=== PATIENT | female | born 1960 | race Caucasian/White ===

== ENCOUNTER 2017-07-25 10:07 | Inpatient (IN) | payer BC, MEDICARE ==
[~2017-07-25] VITALS: Ht 157.5 cm; Wt 61.9 kg
[~2017-07-25 10:07] MED LIST: CO-E50CA PO; CYPR4TAB PO; D31000TA PO; LOVA10TA PO; OMEP20TA PO; SERT50 PO; SUCR1TAB PO; TAB-TAB PO; TRAM50TA PO; VALT1TAB26 PO
[2017-07-25] MEDS ORDERED: METOPROLOL TARTRATE 25 MG TAB PO PRN (10:45)
[2017-07-25] MEDS ORDERED: ceFAZolin 2 GM/DEX PREMIX 50 ML IV SCH (10:45)
[2017-07-25] MEDS ORDERED: POVIDONE IODINE 5% (ANTISEPSIS KIT) 4 APPLICATIONS EACH NARE PRN (10:45)
[2017-07-25] MEDS ORDERED: SODIUM CHLORID 0.9% 500 ML IV PRN (10:45)
[2017-07-25] MEDS ORDERED: CHLORHEXIDINE GLUCONATE 2 % 1 PACK (2 CLOTHS) TOPICAL PRN (10:45)
[2017-07-25] MEDS ORDERED: LACTATED RINGER'S 1000 ML IV PRN (10:45)
[2017-07-25] MEDS ORDERED: LORA1TAB12 PO (11:21)
[2017-07-25] MEDS ORDERED: LIVA4TAB PO (11:21)
[2017-07-25] MEDS ORDERED: ESTR0.62 VAGINAL (11:21)
[2017-07-25] MEDS ORDERED: HYDR-3516 PO (11:21)
[2017-07-25] MEDS ORDERED: FLUT50SP EACH NARE (11:21)
[2017-07-25] MEDS ORDERED: DEXA4TAB PO (11:21)
[2017-07-25] MEDS ORDERED: [UNRECOGNIZED DRUG - CODE] IV (11:21)
[2017-07-25] MEDS ORDERED: ESCI10TA PO (11:21)
[2017-07-25 11:29] LABS: AUTOMATED NEUTROPHIL # 3.8 TH/MM3 (1.8-7.7); HEMATOCRIT 35.6 % (35.0-46.0); HEMOGLOBIN 12.1 GM/DL (11.6-15.3); LYMPH % 13.5 % (9.0-44.0); LYMPHOCYTE # 0.7 TH/MM3 (1.0-4.8); MEAN CELL VOLUME 92.2 FL (80.0-100.0); MEAN CORPUSCULAR HEMOGLOBIN 31.2 PG (27.0-34.0); MEAN CORPUSCULAR HGB CONC 33.9 % (32.0-36.0); MEAN PLATELET VOLUME 7.2 FL (7.0-11.0); MONO % 14.3 % (0.0-8.0); MONOCYTE # 0.7 TH/MM3 (0-0.9); NEUT % 72.2 % (16.0-70.0); PLATELET COUNT 159 TH/MM3 (150-450); RED BLOOD COUNT 3.87 MIL/MM3 (4.00-5.30); RED CELL DISTRIBUTION WIDTH 14.1 % (11.6-17.2); WHITE BLOOD COUNT 5.2 TH/MM3 (4.0-11.0)
[2017-07-25 11:32] LABS: BILIRUBIN, URINE NEG (NEG); BLOOD, URINE TRACE (NEG); GLUCOSE,URINE NEG (NEG); KETONE, URINE NEG (NEG); NITRITE,URINE NEG (NEG); URINE COLOR YELLOW (YELLW/STRAW); URINE LEUKOCYTE ESTERASE NEG (NEG)
[2017-07-25 11:40] LABS: INTERNATIONAL NORMALIZED RATIO 1.1 RATIO; PROTHROMBIN TIME - PATIENT 10.8 SEC (9.8-11.6)
[2017-07-25 11:59] LABS: ALBUMIN 3.6 GM/DL (3.4-5.0); AST (GOT) 40 U/L (15-37); BICARBONATE 29.2 MEQ/L (21.0-32.0); BLOOD UREA NITROGEN 20 MG/DL (7-18); CALCIUM 8.6 MG/DL (8.5-10.1); CHLORIDE 101 MEQ/L (98-107); CREATININE 0.92 MG/DL (0.50-1.00); GLOMERULAR FILTRATION RATE 64 ML/MIN (>89); GLUCOSE,RANDOM 118 MG/DL (74-106); SODIUM (NA) 137 MEQ/L (136-145)
[2017-07-25 12:02] LABS: ALKALINE PHOSPHATASE 91 U/L (45-117); ALT (GPT) 42 U/L (10-53); TOTAL BILIRUBIN ADULT 0.4 MG/DL (0.2-1.0); TOTAL PROTEIN 6.3 GM/DL (6.4-8.2)
--- NOTE | 2017-07-25 12:02 | RADRPT ---
EXAM DATE/TIME: 07/25/2017 10:45 [facility] COMPARISON: CT SIMULATION, June 15, 2017, 13:09. INDICATIONS : Evaluate for pneumonia, pneumothorax and communicable disease. Pre op craniotomy today. MEDICAL HISTORY : Chronic obstructive pulmonary disease. hx of lung cancer chemotherapy since 05/2012, melanoma of the scalp SURGICAL HISTORY : None. ENCOUNTER: Initial ACUITY: 1 day PAIN SCORE: 0/10 LOCATION: Bilateral chest FINDINGS: Right apical opacity likely reflecting primarily post treatment change. Lungs are otherwise clear. Ca rdiomediastinal contours are within normal limits. Bony thorax is intact. CONCLUSION: 1. Right apical opacity likely reflecting primarily post treatment changes. 2. No acute abnormality. Jed Nagel MD on July 25, 2017 at 11:53 Board Certified Radiologist. This report was verified electronically.
[2017-07-25] MEDS ORDERED: MICROFIBRILLAR COLLAGEN HEMOSTAT 70 X 35 MM BANDAGE ONE (12:08)
[2017-07-25] MEDS ORDERED: FUROSEMIDE 40 MG/4 ML VIAL ONE (12:08)
[2017-07-25] MEDS ORDERED: LIDOCAINE 1%/EPINEPHrine 1:100,000 SOLN 30 ML VIAL ONE (12:08)
[2017-07-25] MEDS ORDERED: THROMBIN (TOPICAL) 5,000 UNIT VIAL ONE (12:08)
[2017-07-25] MEDS ORDERED: levETIRAcetam 500 MG/5 ML VIAL IV ONE (12:08)
[2017-07-25] MEDS ORDERED: GELFOAM SIZE 100 ONE (12:08)
[2017-07-25] MEDS ORDERED: BACITRACIN TOP OINT 15 GM TUBE ONE (12:09)
[2017-07-25] MEDS ORDERED: MANNITOL INJ 100 ML ONE (12:09)
[2017-07-25] MEDS ORDERED: GENTAMICIN SULFATE 80 MG/2 ML VIAL ONE (12:09)
[2017-07-25] MEDS ORDERED: GADODIAMIDE PF 287 MG/ML 5 ML VIAL (for RAD MRI) IVCONTRAST ONE (12:30)
[2017-07-25] MEDS ORDERED: ARTIFICIAL TEARS OPTH OINT 3.5 APPLIC/3.5 GM TUBO ONE (12:48)
[2017-07-25] MEDS ORDERED: PROPOFOL 500 MG/50 ML INJ 150 ML ONE (12:48)
[2017-07-25] MEDS ORDERED: ACETAMINOPHEN 1000 MG/100 ML 100 ML IV ONE (12:48)
--- NOTE | 2017-07-25 14:30 | RADRPT ---
EXAM DATE/TIME: 07/25/2017 12:44 [facility] COMPARISON: No previous studies available for comparison. INDICATIONS : Mass. CONTRAST: 13 cc Omniscan (gadodiamide) IV MEDICAL HISTORY : Carcinoma, lung. SURGICAL HISTORY : Tonsillectomy. Hysterectomy. Cholecystectomy. ENCOUNTER: Initial ACUITY: 4-6 days PAIN SCORE: 0/10 LOCATION: Head TECHNIQUE: An MRI brain stealth procedure was performed. The information will be used in the OR for localizatio n. FINDINGS: Post contrast axial Stealth images through the brain demonstrate a somewhat lobulated, 2.6 x 2.8 cm m ass lesion in the left occiput medially. Approximately 5 mm of [id number] subfalcine shift. Lesion appears to be isolated. Old punctate lacunar type infarcts in the right cerebral peduncle and inferi or aspect of the right basal ganglia. CONCLUSION: Left occipital mass lesion as above. Orlando Henry MD on July 25, 2017 at 14:24 Board Certified Radiologist. This report was verified electronically.
[2017-07-25] MEDS ORDERED: MORPHINE SULFATE 4 MG/ML INJ IV PUSH PRN ×2 (15:15)
[2017-07-25] MEDS ORDERED: ACETAMINOPHEN/HYDROcodone 325 MG/10 MG TAB PO PRN (15:15)
[2017-07-25] MEDS ORDERED: ACETAMINOPHEN 325 MG TAB PO PRN (15:15)
[2017-07-25] MEDS ORDERED: CALCIUM GLUCONATE 10% 1 GM/10 ML VIAL IV PRN (15:15)
[2017-07-25] MEDS: levETIRAcetam INJ 500 MG in SODIUM CHLORIDE 0.9% INJ 100 ML IV SCH (15:15)
[2017-07-25] MEDS ORDERED: ONDANSETRON HCL 4 MG/2 ML VIAL IV PUSH PRN (15:15)
[2017-07-25] MEDS ORDERED: BISACODYL 10 MG SUPP RECTAL PRN (15:15)
[2017-07-25] MEDS ORDERED: LORazepam 1 MG TAB PO PRN (15:15)
[2017-07-25] MEDS ORDERED: POTASSIUM CHLOR 20 MEQ PREMIX 100 ML IV PRN (15:15)
[2017-07-25] MEDS ORDERED: MAGNESIUM SULFATE INJ 4 GM in SODIUM CHLORIDE 0.9% INJ 100 ML IV PRN (15:15)
[2017-07-25] MEDS ORDERED: CALCIUM GLUCONATE INJ 1 GM in SODIUM CHLORIDE 0.9% INJ 100 ML IV PRN (15:45)
--- NOTE | 2017-07-25 17:53 | PD.OP ---
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 Surgical resection was indicated. I have discussed with her the [id number] details of the procedure, its indications, alternatives, risks and potential complications with the patient including but not limited to the risk of infection, hemorrhage, paralysis, stroke, heart attack, even vegetative state or even the possibility of . The patient fully understands. All her questions were answered. No guarantees were given. She voiced requesting the procedure and provided informed consent. She has been offered the alternative of not having aggressive management. DETAILS OF THE SURGICAL PROCEDURE Prior to the surgery the patient underwent MRI of the brain according to the stereotactic protocol. The information was transferred to the workstation located in the operative suite. Preoperative planning was performed. The patient was then transferred to the operating room. After induction of general anesthesia, endotracheal intubation was done. A Reza catheter, bilateral VENTURA hose, sequential compression devices were placed and kept throughout the procedure. The patient was positioned supine on a 30/80 table over gel mattress with her head in rigid fixation using the Ellis head teacher. All pressure points were carefully padded with egg crate mattress. The eyes were tapped shut after ointment was applied by the anesthesiologist to prevent corneal abrasion. A Carina hugger was placed over the exposed lower body to maintain control of the core body temperature. The electrophysiological team placed the needles and electrodes in their proper location and baseline SSEP's evoked potentials were registered. The rigid reference body was attached to the head teacher and intraoperative registration was performed with a laser. The left occipital area was shaved, prepped and draped in the usual sterile fashion. A standard curvilinear pterional incision was outlined on the scalp and infiltrated with 1% lidocaine with epinephrine. The skin incision was made with a #10 blade down to the level of the periosteum . Jay clips were applied to the scalp. Using a Bovie, the temporalis fascia and muscle were incised and a subperiosteal dissection was performed reflecting the myofascial scalp flap inferiorly. The scalp was covered with a moist sponge and held in position using fish hooks. The TPS drill was brought to the field and a bur hole was made adjacent to the midline using the craniotome attachment. Then, using the footplate attachment, a craniotomy flap was elevated. The dura was bulging, with mass effect due to the underlying tumor. The tumor was identified with the brainlab, and the dura was opened with a 15 blade and metzembaun sissors and retracted with 4-0 Neurolon sutures attached to the fascia. At this point of the procedure the operative microscope was draped in the usual sterile fashion and brought to the field. The rest of the surgical procedure was performed using microdissection technique with the exception of the closure. Under the operative microscope a small corticotomy was performed and the mass was ressected using microsurgical dissection technique, with the micro-bipolar forceps, microscissors, micro-suction, and gentle irrigation. The specimen was sent to the lab for histological analysis. The frozen section was reported as consistent with metastatic poorly differenciated carcinoma. Specimen was also sent for permanent hystopathological annalysis. A gross total resection of the mass was achieved. Appropriate hemostasis was then secured using the bipolar drafting engineer. Then the incision was irrigated with saline solution. The dural edges were tacked to the bone. The craniotomy flap was then repositioned and secured in place using Striker plates and screws. A 7 millimeter Chase-Ramírez drain was then left in the subgaleal space and externalized through a separate stab incision. The incision was then closed in layers. 0 Vicryl in interrupted sutures were used to close the temporalis fascia. The galea was closed with interrupted 3- 0 Vicryl. [place] were applied to the skin. The drain was secured with a 3-0 nylon. At the end of the procedure, the sponge, needle and instrument counts were all correct. Estimated blood loss was less than 80-100 cc. No blood transfusion was given. No intraoperative complications occurred. The patient received prophylactic antibiotics. The patient was then transferred to the recovery room in stable condition. COMPLICATIONS None Justice Maxwell MD Jul 25, 2017 17:53
[2017-07-25] MEDS ORDERED: *MEPERIDINE 25 MG INJ VIAL PERIprocedural Use ONLY ONE (18:08)
[2017-07-25] MEDS ORDERED: MIDAZOLAM HCL 2 MG/2 ML VIAL ONE (18:23)
[2017-07-25] MEDS: NS + KCL 20 MEQ INJ 1,000 ML IV SCH (18:45)
[2017-07-25 18:57] LABS: HEMATOCRIT 37.9 % (35.0-46.0); HEMOGLOBIN 12.8 GM/DL (11.6-15.3); MEAN CELL VOLUME 93.1 FL (80.0-100.0); MEAN CORPUSCULAR HEMOGLOBIN 31.3 PG (27.0-34.0); MEAN CORPUSCULAR HGB CONC 33.7 % (32.0-36.0); MEAN PLATELET VOLUME 7.3 FL (7.0-11.0); PLATELET COUNT 146 TH/MM3 (150-450); RED BLOOD COUNT 4.08 MIL/MM3 (4.00-5.30); RED CELL DISTRIBUTION WIDTH 14.4 % (11.6-17.2); WHITE BLOOD COUNT 4.9 TH/MM3 (4.0-11.0)
--- NOTE | 2017-07-25 19:01 | RADRPT ---
EXAM DATE/TIME: 07/25/2017 18:39 [facility] COMPARISON: MRI BRAIN STEALTH W CONTRAST, July 25, 2017, 12:44. CT SIMULATION, June 15, 2017, 13:09. INDICATIONS : post operative tumor removal. RADIATION DOSE: 56.41 CTDIvol (mGy) MEDICAL HISTORY : Brain tumor. SURGICAL HISTORY : Craniotomy. ENCOUNTER: Initial ACUITY: 1 day PAIN SCALE: 4/10 LOCATION: cranial TECHNIQUE: Multiple contiguous axial images were obtained of the head. Using automated exposure control and adj ustment of the mA and/or kV according to patient size, radiation dose was kept as low as reasonably a chievable to obtain optimal diagnostic quality images. DICOM format image data is available electro nically for review and comparison. FINDINGS: There has been interval left occipital craniotomy with brain tumor resection. A surgical drain is pre sent in the operative bed. There is minimal spontaneous increased density in the operative bed and sm all bubbles of postoperative air. Mild persistent vasogenic edema is present. The posterior fossa and brainstem structures are intact and unremarkable. The right hemisphere is stable and benign. CONCLUSION: Postoperative findings in the left occipital region. Elijah Timmons MD on July 25, 2017 at 18:57 Board Certified Radiologist. This report was verified electronically.
[2017-07-25] MEDS ORDERED: *morphine SULFATE 8 MG/ML PERIprocedure ONLY ONE (19:07)
[2017-07-25 19:17] LABS: BICARBONATE 28.5 MEQ/L (21.0-32.0); CALCIUM 8.2 MG/DL (8.5-10.1); CREATININE 1.07 MG/DL (0.50-1.00)
[2017-07-25] MEDS ORDERED: DO NOT ADM ANY ANTICOAGULANT DRUGS PRN (19:30)
--- NOTE | 2017-07-25 20:52 | PD.CONS ---
[facility] Service Critical Care Medicine Consult Requested By Dr. Maxwell Reason for Consult perioperative management of medical comorbidities and hemodynamics Primary Care Physician Venkata Mckenzie M.D. History of Present Illness This is a 56yF with history of lung cancer with mets to brain who is s/p chemo/ radiation and now presents for resection of brain met. She is now POD 0 s/p resection. She is arousing from anesthesia in PACU. due to her somnolence, a complete history is unobtainable and the remainder is obtained from the medical record. She does wake up, follow commands x 4, and complaints of a mild left occipital headache. very limited ROS negative. Review of Systems ROS Limitations: Clinical Condition Eyes: DENIES: Eye pain Respiratory: DENIES: Shortness of breath Cardiovascular: DENIES: Chest pain Gastrointestinal: DENIES: Nausea, Vomiting Neurologic: COMPLAINS OF: Headache ROS limited by arousal from anesthesia. Past Family Social History Allergies: Coded Allergies: No Known Allergies (Verified , 05/01/12) Past Medical History GERD neck pain lung cancer with mets to brain s/p neoadjuvant chemo/radiation Past Surgical History unobtainable from the patient due to her somnolence. Reported Medications Alimta Inj (Pemetrexed) 100 Mg Inj 100 Mg IV Fluticasone Nasal [place] 50 Mcg/Act Naspr 50 Mcg EACH NARE BID 50 mcg/spray Hydrocodone-Acetaminophen 5-325 mg Tab 1 Tab PO Q4H PRN Premarin Vaginal (Estrogens, Conjugated Vaginal) 0.625 Mg/Gm Cream 1 Gm VAGINAL QWEEK Livalo (Pitavastatin) 4 Mg Tab 4 Mg PO DAILY Escitalopram (Escitalopram Oxalate) 10 Mg Tab 10 Mg PO DAILY Lorazepam 1 Mg Tab 1 Mg PO DAILY PRN Dexamethasone 4 Mg Tab 4 Mg PO DIRECTED Valtrex (Valacyclovir HCl) 1 Gm Tab 1 Gm PO DAILY Sucralfate 1 Gm Tab 1 Gm PO DAILY Omeprazole 20 mg (Omeprazole) 20 Mg Tab 20 Mg PO DAILY Multivitamin (Multivitamins) 1 Tab Tab 1 Tab PO DAILY Lovastatin 10 Mg Tab 10 Mg PO HS Cyproheptadine Hcl (Cyproheptadine HCl) 4 Mg Tab 4 Mg PO BID D3 (Cholecalciferol) 1,000 Unit Tab 1,000 Unit PO DAILY Zoloft (Sertraline HCl) 50 Mg Tab 50 Mg PO DAILY Active Ordered Medications See MAR Family History reviewed in the chart and found to be noncontributory to her acute illness Social History unobtainable from the patient due to her somnolence. Physical Exam Vital Signs Vital Signs Date Time Temp Pulse Resp B/P (MAP) Pulse Ox O2 Delivery O2 Flow Rate FiO2 07/25/17 20:00 55 16 99/58 (72) 96 Nasal Cannula 2 07/25/17 19:45 56 16 99/46 (63) 96 Nasal Cannula 2 07/25/17 19:30 54 16 97/44 (61) 97 Nasal Cannula 2 07/25/17 19:15 56 16 98/52 (67) 96 Nasal Cannula 2 07/25/17 19:00 68 16 117/54 (75) 97 Nasal Cannula 2 07/25/17 18:45 73 16 113/58 (76) 96 Nasal Cannula 2 07/25/17 18:30 80 16 110/50 (70) 95 Nasal Cannula 2 07/25/17 18:15 78 16 125/61 (82) 98 Nasal Cannula 4 07/25/17 18:09 97.4 93 16 133/61 (85) 97 Nasal Cannula 4 07/25/17 11:38 98.2 51 16 138/66 (90) 94 Physical Exam GENERAL: Middle-aged female, lying in bed, arousing from anesthesia, somnolent but arousable HEENT: Head is wrapped in Kerlix which is clean and dry. There is a KATHLEEN that exits from the occiput with a minimal amount of sanguinous output. Pupils equal , round, reactive, conjugate. Mucous membranes are moist NECK: Trachea is midline. There is no JVD. CHEST: Equal chest rise. No accessory muscle use. Nasal cannula oxygen. CARDIOVASCULAR: Normal rate, regular rhythm. Sinus by telemetry. Systolic is 109. Not currently on nicardipine. ABDOMEN: Soft, nontender, nondistended. No guarding. MUSCULOSKELETAL: Pulses 2+. No peripheral edema. NEUROLOGICAL: RASS -2. Arouses to voice. Still somnolent from anesthesia. Will arouse and follows commands 4. Laboratory Laboratory Tests Test 07/25/17 11:00 07/25/17 11:10 07/25/17 18:20 Urine Color YELLOW Urine Turbidity CLEAR Urine pH 7.0 Urine Specific [place] 1.017 Urine Protein TRACE Urine Glucose (UA) NEG Urine Ketones NEG Urine Occult Blood TRACE Urine Nitrite NEG Urine Bilirubin NEG Urine Urobilinogen LESS THAN 2.0 Urine Leukocyte Esterase NEG Urine RBC 5 Urine WBC LESS THAN 1 Microscopic Urinalysis Comment CULT NOT INDICATED White Blood Count 5.2 4.9 Red Blood Count 3.87 4.08 Hemoglobin 12.1 12.8 Hematocrit 35.6 37.9 Mean Corpuscular Volume 92.2 93.1 Mean Corpuscular Hemoglobin 31.2 31.3 Mean Corpuscular Hemoglobin Concent 33.9 33.7 Red Cell Distribution Width 14.1 14.4 Platelet Count 159 146 Mean Platelet Volume 7.2 7.3 Neutrophils (%) (Auto) 72.2 Lymphocytes (%) (Auto) 13.5 Monocytes (%) (Auto) 14.3 Eosinophils (%) (Auto) 0.0 Basophils (%) (Auto) 0.0 Neutrophils # (Auto) 3.8 Lymphocytes # (Auto) 0.7 Monocytes # (Auto) 0.7 Eosinophils # (Auto) 0.0 Basophils # (Auto) 0.0 CBC Comment AUTO DIFF Differential Comment AUTO DIFF CONFIRMED Prothrombin Time 10.8 Prothromb Time International Ratio 1.1 Activated Partial Thromboplast Time 22.5 Blood Urea Nitrogen 20 15 Creatinine 0.92 1.07 Random Glucose 118 144 Total Protein 6.3 Albumin 3.6 Calcium Level 8.6 8.2 Alkaline Phosphatase 91 Aspartate Amino Transf (AST/SGOT) 40 Alanine Aminotransferase (ALT/SGPT) 42 Total Bilirubin 0.4 Sodium Level 137 137 Potassium Level 3.5 3.5 Chloride Level 101 99 Carbon Dioxide Level 29.2 28.5 Anion Gap 7 10 Estimat Glomerular Filtration Rate 64 53 Result Diagram: 07/25/170 07/25/171819 Imaging Last Impressions Head CT 07/25/17 0000 Signed Impressions: Service Date/Time: Tuesday, July 25, 2017 18:39 - CONCLUSION: Postoperative findings in the left occipital region. Elijah Timmons MD Chest X-Ray 07/25/17 0000 Signed Impressions: Service Date/Time: Tuesday, July 25, 2017 10:45 - CONCLUSION: 1. Right apical opacity likely reflecting primarily post treatment changes. 2. No acute abnormality. Jed Nagel MD Brain MRI 07/25/17 0000 Signed Impressions: Service Date/Time: Tuesday, July 25, 2017 12:44 - CONCLUSION: Left occipital mass lesion as above. Orlando Henry MD Assessment and Plan Assessment and Plan Assessment: 56-year-old female postop day 0 status post left occipital craniotomy with resection for tumor met. Admit to ICU. Goal systolic blood pressure less than 140. We will use nicardipine as needed for this. Frequent neuro checks. Lung cancer with brain metastases Status post resection Frequent neurochecks Continue arterial line Goal systolic less than 140 As needed labetalol, hydralazine Nicardipine infusion Decadron per Dr. Maxwell GERD Continue home PPI Hyperlipidemia Continue home statin Depression Continue home SSRI Admit to ICU. Critical care medicine will continue to follow the patient. Jeremiah Covington MD Jul 25, 2017 20:52
[2017-07-25] MEDS ORDERED: *morphine SULFATE 4 MG/ML PERIprocedure ONLY ONE (20:57)
[2017-07-25] MEDS: CYPROHEPTADINE HCL 4 MG TAB PO SCH (21:00)
[2017-07-25] MEDS ORDERED: LOVASTATIN 10 MG PO SCH (21:00)
[2017-07-25] MEDS: MAGNESIUM SULFATE 1 GM PREMIX 100 ML IV SCH ×2 (21:00→23:37)
[2017-07-25] MEDS: FLUTICASONE PROPIONATE 50 MCG/ACT 16 GM NASAL SPRAY EACH NARE SCH (21:00)
[2017-07-25] MEDS ORDERED: MAGNESIUM SULFAT 1 GM PREMIX 100 ML x2 bags IV SCH (21:00)
[2017-07-25] MEDS: DOCUSATE SODIUM 100 MG CAP PO SCH (21:00)
--- NOTE | 2017-07-25 21:42 | EKG ---
Date Performed: 07/25/2017 Time Performed: 10:50:21 PTAGE: 56 years EKG: SINUS BRADYCARDIA POSSIBLE ANTERIOR MYOCARDIAL INFARCTION , OLD ABNORMAL ECG NO PREVIOUS TRACING DOCTOR: Tati Dewey Interpretating Date/Time 07/25/2017 21:41:44
[2017-07-25] MEDS: ceFAZolin 2 GM PREMIX 50 ML IV SCH (22:00)
[2017-07-26] MEDS: ACETAMINOPHEN/HYDROcodone 325 MG/10 MG TAB PO PRN ×2 (00:05→15:30)
[2017-07-26] MEDS: levETIRAcetam INJ 500 MG in SODIUM CHLORIDE 0.9% INJ 100 ML IV SCH ×2 (03:15→15:15)
[2017-07-26 04:14] LABS: EOSINOPHIL % 0.1 % (0.0-4.0); HEMATOCRIT 35.6 % (35.0-46.0); HEMOGLOBIN 12.1 GM/DL (11.6-15.3); LYMPH % 10.6 % (9.0-44.0); MEAN CELL VOLUME 92.9 FL (80.0-100.0); MEAN CORPUSCULAR HEMOGLOBIN 31.5 PG (27.0-34.0); MEAN CORPUSCULAR HGB CONC 33.9 % (32.0-36.0); MEAN PLATELET VOLUME 7.2 FL (7.0-11.0); MONO % 17.9 % (0.0-8.0); MONOCYTE # 1.8 TH/MM3 (0-0.9); NEUT % 71.4 % (16.0-70.0); PLATELET COUNT 150 TH/MM3 (150-450); RED BLOOD COUNT 3.83 MIL/MM3 (4.00-5.30); RED CELL DISTRIBUTION WIDTH 14.6 % (11.6-17.2); WHITE BLOOD COUNT 9.8 TH/MM3 (4.0-11.0)
[2017-07-26 04:37] LABS: BICARBONATE 32.4 MEQ/L (21.0-32.0); CREATININE 0.84 MG/DL (0.50-1.00)
[2017-07-26] MEDS: ceFAZolin 2 GM PREMIX 50 ML IV SCH ×2 (05:51→14:00)
[2017-07-26] MEDS: NS + KCL 20 MEQ INJ 1,000 ML IV SCH ×2 (08:38→21:00)
[2017-07-26] MEDS ORDERED: DEXAMETHASONE SOD PHOS 4 MG/ML VIAL ONE (08:47)
[2017-07-26] MEDS: DEXAMETHASONE SOD PHOS 4 MG/ML VIAL IV SCH ×3 (08:50→21:49)
[2017-07-26] MEDS: PANTOPRAZOLE SOD 40 MG DELAYED RELEASE TAB PO SCH (09:00)
[2017-07-26] MEDS: FLUTICASONE PROPIONATE 50 MCG/ACT 16 GM NASAL SPRAY EACH NARE SCH ×2 (09:00→21:00)
[2017-07-26] MEDS: MULTIVITAMIN TAB PO SCH (09:00)
[2017-07-26] MEDS: ESCITALOPRAM OXALATE 10 MG TAB PO SCH (09:00)
[2017-07-26] MEDS: DOCUSATE SODIUM 100 MG CAP PO SCH ×2 (09:00→21:47)
[2017-07-26] MEDS: valACYclovir HCL 500 MG TAB PO SCH (09:00)
[2017-07-26] MEDS: PANTOPRAZOLE SODIUM 40 MG VIAL IVP SCH (09:00)
[2017-07-26] MEDS ORDERED: OMEPRAZOLE 20 MG PO SCH (09:00)
[2017-07-26] MEDS: PRAVASTATIN SOD 80 MG TAB PO SCH (09:00)
[2017-07-26] MEDS: CYPROHEPTADINE HCL 4 MG TAB PO SCH ×2 (09:00→21:47)
[2017-07-26] MEDS ORDERED: SERTRALINE HCL 50 MG TAB PO SCH (09:00)
[2017-07-26] MEDS: CHOLECALCIFEROL (VIT D3) 1000 UNIT TAB PO SCH (09:00)
[2017-07-26 10:10] LABS: CALCIUM-PROTEIN CORRECTED 8.6 MG/DL (8.5-10.1); TOTAL PROTEIN 6.1 GM/DL (6.4-8.2)
[2017-07-26] MEDS: SUCRALFATE 1 GM TAB PO SCH (10:17)
[2017-07-26] MEDS ORDERED: SODIUM CHLORID 0.9% 500 ML INJ 500 ML IV ONE (12:00)
[2017-07-26] MEDS ORDERED: DEXAMETHASONE SOD PHOS 4 MG/ML VIAL IV ONE (12:00)
[2017-07-26] MEDS ORDERED: ROCURONIUM INJ 50 MG/5 ML SYRINGE IV PUSH ONE (12:00)
[2017-07-26] MEDS ORDERED: LACTATED RINGER'S 1000 ML INJ 3,000 ML IV ONE (12:00)
[2017-07-26] MEDS ORDERED: GLYCOPYRROLATE 1 MG/5 ML SYRINGE IV PUSH ONE (12:00)
[2017-07-26] MEDS ORDERED: NEOSTIGMINE 5 MG/5 ML SYRINGE IV PUSH ONE (12:00)
[2017-07-26] MEDS ORDERED: LABETALOL HCL 100 MG/20 ML VIAL IV ONE (12:00)
[2017-07-26] MEDS ORDERED: hydrALAZINE HCL 20 MG/ML VIAL IV ONE (12:00)
[2017-07-26] MEDS ORDERED: LIDOCAINE HCL 1% PF 5 ML SYRINGE OTHER ONE (12:00)
[2017-07-26] MEDS ORDERED: SODIUM CHLOR 0.9% 250 ML INJ 250 ML IV ONE (12:00)
[2017-07-26] MEDS ORDERED: PROPOFOL 200 MG/20 ML AMP IV ONE (12:00)
--- NOTE | 2017-07-26 13:51 | HHI.NSPN ---
(Nichelle Mann) Note Status Status: Progress Note (Nichelle Mann) Interval History Interval History Ms. Burnett is s/p stereotactic, image-guided left occipital craniotomy, microsurgical resection of metastatic carcinoma on Jul 25, 2017 for metastatic carcinoma 07/26: doing well in PACU, awaiting bed in [facility], pulse still mildly bradycardic. awake, alert, eating her lunch. (Nichelle Mann) Labs, Micro, & Vital Signs Results Date Time Temp Pulse Resp B/P (MAP) Pulse Ox O2 Delivery O2 Flow Rate FiO2 07/26/17 10:00 46 18 131/60 (83) 98 Room Air Arterial Line 07/26/17 09:00 46 18 134/63 (86) 98 Room Air 07/26/17 08:00 97.5 50 18 120/58 (78) 95 Room Air 07/26/17 07:00 45 20 127/61 (83) 97 Room Air 144/73 (96) 07/26/17 06:00 45 18 131/64 (86) 8 Room Air 144/73 (96) 07/26/17 05:00 52 20 124/6 (45) 98 Nasal Cannula 2 143/70 (94) 07/26/17 04:00 97.6 46 22 121/58 (79) 98 Nasal Cannula 2 135/65 (88) 07/26/17 03:00 43 19 134/63 (86) 100 Nasal Cannula 2 128/62 (84) 07/26/17 02:00 45 12 111/56 (74) 100 Nasal Cannula 2 113/57 (75) 07/26/17 01:00 46 16 104/58 (73) 98 Nasal Cannula 2 110/55 (73) 07/26/17 00:00 97.8 50 20 131/86 (101) 96 Nasal Cannula 2 148/82 (104) 07/25/17 23:00 49 20 116/56 (76) 95 Nasal Cannula 2 121/62 (81) 07/25/17 22:00 49 20 114/57 (76) 95 Nasal Cannula 2 114/54 (74) 07/25/17 21:30 51 19 124/59 (80) 95 Nasal Cannula 2 117/53 (74) 07/25/17 21:15 52 16 119/48 (71) 96 Nasal Cannula 2 07/25/17 21:00 57 16 120/58 (78) 97 Nasal Cannula 2 07/25/17 20:45 61 16 111/58 (75) 97 Nasal Cannula 2 07/25/17 20:30 52 16 107/54 (71) 95 Nasal Cannula 2 07/25/17 20:15 54 16 98/52 (67) 95 Nasal Cannula 2 07/25/17 20:00 55 16 99/58 (72) 96 Nasal Cannula 2 07/25/17 19:45 56 16 99/46 (63) 96 Nasal Cannula 2 07/25/17 19:30 54 16 97/44 (61) 97 Nasal Cannula 2 07/25/17 19:15 56 16 98/52 (67) 96 Nasal Cannula 2 07/25/17 19:00 68 16 117/54 (75) 97 Nasal Cannula 2 07/25/17 18:56 64 07/25/17 18:45 73 16 113/58 (76) 96 Nasal Cannula 2 07/25/17 18:30 80 16 110/50 (70) 95 Nasal Cannula 2 07/25/17 18:15 78 16 125/61 (82) 98 Nasal Cannula 4 07/25/17 18:09 97.4 93 16 133/61 (85) 97 Nasal Cannula 4 07/27/17 07:00 Intake Total 240 ml Output Total 525 ml Balance -285 ml Constitutional Vital Signs Date Time Temp Pulse Resp B/P (MAP) Pulse Ox O2 Delivery O2 Flow Rate FiO2 07/26/17 10:00 46 18 131/60 (83) 98 Room Air Arterial Line 07/26/17 09:00 46 18 134/63 (86) 98 Room Air 07/26/17 08:00 97.5 50 18 120/58 (78) 95 Room Air 07/26/17 07:00 45 20 127/61 (83) 97 Room Air 144/73 (96) 07/26/17 06:00 45 18 131/64 (86) 8 Room Air 144/73 (96) 07/26/17 05:00 52 20 124/6 (45) 98 Nasal Cannula 2 143/70 (94) 07/26/17 04:00 97.6 46 22 121/58 (79) 98 Nasal Cannula 2 135/65 (88) 07/26/17 03:00 43 19 134/63 (86) 100 Nasal Cannula 2 128/62 (84) 07/26/17 02:00 45 12 111/56 (74) 100 Nasal Cannula 2 113/57 (75) 07/26/17 01:00 46 16 104/58 (73) 98 Nasal Cannula 2 110/55 (73) 07/26/17 00:00 97.8 50 20 131/86 (101) 96 Nasal Cannula 2 148/82 (104) 07/25/17 23:00 49 20 116/56 (76) 95 Nasal Cannula 2 121/62 (81) 07/25/17 22:00 49 20 114/57 (76) 95 Nasal Cannula 2 114/54 (74) 07/25/17 21:30 51 19 124/59 (80) 95 Nasal Cannula 2 117/53 (74) 07/25/17 21:15 52 16 119/48 (71) 96 Nasal Cannula 2 07/25/17 21:00 57 16 120/58 (78) 97 Nasal Cannula 2 18 20:45 61 16 111/58 (75) 97 Nasal Cannula 2 07/25/17 20:30 52 16 107/54 (71) 95 Nasal Cannula 2 07/25/17 20:15 54 16 98/52 (67) 95 Nasal Cannula 2 18 20:00 55 16 99/58 (72) 96 Nasal Cannula 2 07/25/17 19:45 56 16 99/46 (63) 96 Nasal Cannula 2 18 19:30 54 16 97/44 (61) 97 Nasal Cannula 2 18 19:15 56 16 98/52 (67) 96 Nasal Cannula 2 18 19:00 68 16 117/54 (75) 97 Nasal Cannula 2 18 18:56 64 18 18:45 73 16 113/58 (76) 96 Nasal Cannula 2 18 18:30 80 16 110/50 (70) 95 Nasal Cannula 2 18 18:15 78 16 125/61 (82) 98 Nasal Cannula 4 18 18:09 97.4 93 16 133/61 (85) 97 Nasal Cannula 4 07/27/17 07:00 Intake Total 240 ml Output Total 525 ml Balance -285 ml (Nichelle Mann) Physical Exam Ms. Burnett is alert, awake and oriented to time, place and person. Speech is fluent. Head wrapped in clean and dry dressing. KATHLEEN drain with minimal drainage. Cranial nerve: pupils equal, round and reactive to light. Facial motor are normal and symmetrical. Gross hearing appears intact. Neck is soft and supple Motor: moving all four extremities (Nichelle Mann) Medications Current Medications Current Medications Medications (Trade) Dose Ordered Sig/Emmy Route PRN Reason Start Time Stop Time Status Last Admin Dose Admin Cefazolin Sodium/ Dextrose 50 ml @ 100 mls/hr PAGE TECHNICIAN IV 07/25/17 10:45 07/28/17 10:44 07/25/17 14:59 Metoprolol Tartrate (Lopressor) 25 mg PAGE TECHNICIAN PRN PO SEE LABEL COMMENTS 07/25/17 10:45 07/28/17 10:44 Povidone Iodine (Betadine 5% Antisepsis Kit) 1 applic PAGE TECHNICIAN PRN EACH NARE SEE LABEL COMMENTS 07/25/17 10:45 07/28/17 10:44 Chlorhexidine Gluconate (Chlorhexidine 2% Cloth) 3 pack PAGE TECHNICIAN PRN TOPICAL SEE LABEL COMMENTS 07/25/17 10:45 07/28/17 10:44 Potassium Chloride/Sodium Chloride 1,000 ml @ 100 mls/hr Q10H IV 07/25/17 15:00 07/26/17 08:38 Cefazolin Sodium/ Dextrose 50 ml @ 100 mls/hr Q8H IV 07/25/17 22:00 07/26/17 14:29 07/26/17 05:51 Levetriacetam 500 mg/Sodium Chloride 105 ml @ 400 mls/hr Q12H IV 07/25/17 15:15 07/26/17 03:15 Bisacodyl (Dulcolax Supp) 10 mg DAILY PRN RECTAL CONSTIPATION 07/25/17 15:15 Docusate Sodium (Colace) 100 mg BID PO 07/25/17 21:00 07/26/17 09:00 Pantoprazole Sodium (Protonix) 40 mg DAILY PO 07/26/17 09:00 Pantoprazole Sodium (Protonix Inj) 40 mg DAILY IVP 07/26/17 09:00 07/26/17 09:00 Ondansetron HCl (Zofran Inj) 4 mg Q6H PRN IV PUSH NAUSEA OR VOMITING 07/25/17 15:15 Potassium Chloride 100 ml @ 50 mls/hr UNSCH PRN IV POTASSIUM LESS THAN 4 07/25/17 15:15 Magnesium Sulfate 4 gm/Sodium Chloride 108 ml @ 108 mls/hr UNSCH PRN IV MAGNESIUM LESS THAN 2 07/25/17 15:15 Acetaminophen/ Hydrocodone Bitart ([place] 10-325 Mg) 1 tab Q4H PRN PO PAIN SCALE 1 TO 5 07/25/17 15:15 07/26/17 00:05 Acetaminophen/ Hydrocodone Bitart ([place] 10-325 Mg) 2 tab Q4H PRN PO PAIN SCALE 6 TO 10 07/25/17 15:15 Morphine Sulfate (Morphine Inj) 2 mg Q2H PRN IV PUSH PAIN SCALE 1 TO 6 07/25/17 15:15 Morphine Sulfate (Morphine Inj) 4 mg Q2H PRN IV PUSH PAIN SCALE 7 TO 10 07/25/17 15:15 Acetaminophen (Tylenol) 650 mg Q4H PRN PO TEMPERATURE > 101.5 F 07/25/17 15:15 Cholecalciferol (Vitamin D3) 1,000 units DAILY PO 07/26/17 09:00 07/26/17 09:00 Cyproheptadine HCl (Periactin) 4 mg BID PO 07/25/17 21:00 07/26/17 09:00 Escitalopram Oxalate (Lexapro) 10 mg DAILY PO 07/26/17 09:00 07/26/17 09:00 Fluticasone Propionate (Flonase Huseyin Spr) 1 spray BID EACH NARE 07/25/17 21:00 Lorazepam (Ativan) 1 mg DAILY PRN PO ANXIETY 07/25/17 15:15 Multivitamins (Theragran) 1 tab DAILY PO 07/26/17 09:00 Sucralfate (Carafate) 1 gm DAILY@1100 PO 07/26/17 11:00 07/26/17 10:17 Valacyclovir HCl (Valtrex) 1,000 mg DAILY PO 07/26/17 09:00 07/26/17 09:00 Pravastatin Sodium (Pravachol) 80 mg DAILY PO 07/26/17 09:00 Calcium Gluconate 1 gm/Sodium Chloride 110 ml @ 110 mls/hr UNSCH PRN IV SEE LABEL COMMENTS 07/25/17 15:45 Miscellaneous Information ALL NURSING DEPARTME... UNSCH PRN .XX SEE LABEL COMMENTS 07/25/17 19:30 07/26/17 19:29 Dexamethasone Sodium Phosphate (Decadron Inj) 4 mg Q6H IV 07/26/17 09:00 07/26/17 08:50 (Nichelle Mann) Medical Decision Making MDM Remarks Ms. Burnett is s/p stereotactic, image-guided left occipital craniotomy, microsurgical resection of metastatic carcinoma on Jul 25, 2017 for metastatic carcinoma (Nichelle Mann) Plan Plan Remarks cont KATHLEEN draining cont neuro checks, awaiting bed in [facility], PT, clear to start mobilizing OOB to chair dc cardona cont seizure prophylaxis cont SCDs and VENTURA for dvt prophylaxis cont Protonix for stress ulcer prophylaxis (Nichelle Mann) Attending Statement The exam, history, and the medical decision-making described in the above note were completed with the assistance of the mid-level provider. I reviewed and agree with the findings presented. I attest that I had a [id number] encounter with the patient on the same day, and personally performed and documented my assessment and findings in the medical record. (Justice Maxwell MD) Nichelle Mann Jul 26, 2017 13:51 Justice Maxwell MD Jul 27, 2017 21:26
--- NOTE | 2017-07-26 14:05 | HHI.DCPOC ---
Discharge Care Plan Diagnosis: (1) S/P craniotomy Goals to Promote Your Health * To prevent worsening of your condition and complications * To maintain your health at the optimal level Directions to Meet Your Goals Take your medications as prescribed Follow your dietary instruction Follow activity as directed Keep your appointments as scheduled Take your immunizations and boosters as scheduled If your symptoms worsen call your PCP, if no PCP go to Urgent Care Center or Emergency Room Smoking is Dangerous to Your Health. Avoid second hand smoke Call the 24-hour hour crisis hotline for domestic abuse at Nichelle Mann Jul 26, 2017 14:05
--- NOTE | 2017-07-26 16:24 | OTSOAPIP ---
RECEIVED OCCUPATIONAL THERAPY ORDERS FROM DR. MARTÍNEZ. PATIENT IS S/P CRANIOTOMY AND IS IN POST ANESTHESIA. WILL FOLLOW UP AND REATTEMPT TOMORROW. INTERDISCIPLINARY COMMUNICATION: REVIEWED ELECTRONIC MEDICAL RECORD, SPOKE WITH RN Therapist: Ariadna Pizano, OTR/L Signature on file
--- NOTE | 2017-07-26 17:41 | HHI.CCPN ---
Subjective Remarks/Hospital Course 07/25: This is a 56yF with history of lung cancer with mets to brain who is s/p chemo/radiation and now presents for resection of brain met. She is now POD 0 s/ p resection. She is arousing from anesthesia in PACU. due to her somnolence, a complete history is unobtainable and the remainder is obtained from the medical record. She does wake up, follow commands x 4, and complaints of a mild left occipital headache. very limited ROS negative. 07/26: Resting comfortably in PACU. Neurosurgery following. Awake and alert. Tolerating p.o. Objective Vital Signs Date Time Temp Pulse Resp B/P (MAP) Pulse Ox O2 Delivery O2 Flow Rate FiO2 07/26/17 10:00 46 18 131/60 (83) 98 Room Air Arterial Line 07/26/17 08:00 97.5 07/26/17 05:00 2 Intake and Output 07/26/17 07/26/17 07/27/17 08:00 16:00 00:00 Intake Total 420 ml 120 ml Output Total 1195 ml 350 ml Balance -775 ml -230 ml Result Diagram: 07/26/17 0358 07/26/17 0358 Imaging Last Impressions Head CT 07/25/17 0000 Signed Impressions: Service Date/Time: Tuesday, July 25, 2017 18:39 - CONCLUSION: Postoperative findings in the left occipital region. Elijah Timmons MD Chest X-Ray 07/25/17 0000 Signed Impressions: Service Date/Time: Tuesday, July 25, 2017 10:45 - CONCLUSION: 1. Right apical opacity likely reflecting primarily post treatment changes. 2. No acute abnormality. Jed Nagel MD Brain MRI 07/25/17 0000 Signed Impressions: Service Date/Time: Tuesday, July 25, 2017 12:44 - CONCLUSION: Left occipital mass lesion as above. Orlando Henry MD Objective Remarks GENERAL: Middle-aged female, lying in bed, not in any acute distress. HEENT: Head is wrapped in Kerlix which is clean and dry. There is a KATHLEEN that exits from the occiput with a minimal amount of sanguinous output. Pupils equal , round, reactive, conjugate. Mucous membranes are moist NECK: Trachea is midline. There is no JVD. CHEST: Equal chest rise. No accessory muscle use. Nasal cannula oxygen. CARDIOVASCULAR: Normal rate, regular rhythm. Sinus by telemetry. Systolic is 109. Not currently on nicardipine. ABDOMEN: Soft, nontender, nondistended. No guarding. MUSCULOSKELETAL: Pulses 2+. No peripheral edema. NEUROLOGICAL: Awake alert oriented 3, nonfocal A/P Assessment and Plan Assessment: 56-year-old female postop day 0 status post left occipital craniotomy with resection for tumor met. Admit to ICU. Goal systolic blood pressure less than 140. We will use nicardipine as needed for this. Frequent neuro checks. Lung cancer with brain metastases Status post resection Frequent neurochecks Continue arterial line Goal systolic less than 140 As needed labetalol, hydralazine Nicardipine infusion Decadron per Dr. Maxwell GERD Continue home PPI Hyperlipidemia Continue home statin Depression Continue home SSRI Consult hospitalist service for further medical management. Critical care will be signing off. Further recommendations per neurosurgery. Discussed with PACU nurse. Regan Colvin MD Jul 26, 2017 17:41
[2017-07-26 20:00] VITALS: BP 138/65; PULSE 48; RESP 18; TEMP 98.4; O2SAT 96
[2017-07-27] VITALS (11 sets, daily range): BP systolic 134–158; BP diastolic 64–79; PULSE 50–57; RESP 14–31; TEMP 97.9–98.4; O2SAT 94–98
[2017-07-27] MEDS: DEXAMETHASONE SOD PHOS 4 MG/ML VIAL IV SCH ×4 (03:27→19:47)
[2017-07-27] MEDS: levETIRAcetam INJ 500 MG in SODIUM CHLORIDE 0.9% INJ 100 ML IV SCH ×2 (03:28→14:57)
[2017-07-27] MEDS: ACETAMINOPHEN/HYDROcodone 325 MG/10 MG TAB PO PRN ×2 (04:08→19:46)
[2017-07-27 05:26] LABS: AUTOMATED NEUTROPHIL # 6.9 TH/MM3 (1.8-7.7); HEMATOCRIT 34.6 % (35.0-46.0); HEMOGLOBIN 11.7 GM/DL (11.6-15.3); LYMPH % 6.6 % (9.0-44.0); LYMPHOCYTE # 0.6 TH/MM3 (1.0-4.8); MEAN CELL VOLUME 93.7 FL (80.0-100.0); MEAN CORPUSCULAR HEMOGLOBIN 31.7 PG (27.0-34.0); MEAN CORPUSCULAR HGB CONC 33.9 % (32.0-36.0); MEAN PLATELET VOLUME 7.8 FL (7.0-11.0); MONO % 11.6 % (0.0-8.0); NEUT % 81.8 % (16.0-70.0); PLATELET COUNT 139 TH/MM3 (150-450); RED BLOOD COUNT 3.69 MIL/MM3 (4.00-5.30); RED CELL DISTRIBUTION WIDTH 14.6 % (11.6-17.2); WHITE BLOOD COUNT 8.5 TH/MM3 (4.0-11.0)
[2017-07-27 05:49] LABS: ALBUMIN 2.9 GM/DL (3.4-5.0); ALKALINE PHOSPHATASE 79 U/L (45-117); ALT (GPT) 57 U/L (10-53); AST (GOT) 29 U/L (15-37); BLOOD UREA NITROGEN 14 MG/DL (7-18); CHLORIDE 107 MEQ/L (98-107); CREATININE 0.86 MG/DL (0.50-1.00); FREE T4 0.98 NG/DL (0.76-1.46); GLOMERULAR FILTRATION RATE 69 ML/MIN (>89); GLUCOSE,RANDOM 148 MG/DL (74-106); PHOSPHORUS 2.3 MG/DL (2.5-4.9); SODIUM (NA) 141 MEQ/L (136-145); TOTAL BILIRUBIN ADULT 0.3 MG/DL (0.2-1.0); TOTAL PROTEIN 5.7 GM/DL (6.4-8.2)
[2017-07-27] MEDS: NS + KCL 20 MEQ INJ 1,000 ML IV SCH ×3 (07:00→22:27)
[2017-07-27] MEDS: CYPROHEPTADINE HCL 4 MG TAB PO SCH ×2 (08:43→19:47)
[2017-07-27] MEDS: CHOLECALCIFEROL (VIT D3) 1000 UNIT TAB PO SCH (08:44)
[2017-07-27] MEDS: PANTOPRAZOLE SOD 40 MG DELAYED RELEASE TAB PO SCH (08:44)
[2017-07-27] MEDS: valACYclovir HCL 500 MG TAB PO SCH (08:44)
[2017-07-27] MEDS: MULTIVITAMIN TAB PO SCH (08:44)
[2017-07-27] MEDS: ESCITALOPRAM OXALATE 10 MG TAB PO SCH (08:45)
[2017-07-27] MEDS: DOCUSATE SODIUM 100 MG CAP PO SCH ×2 (08:45→19:46)
[2017-07-27] MEDS: PANTOPRAZOLE SODIUM 40 MG VIAL IVP SCH (08:46)
[2017-07-27] MEDS: FLUTICASONE PROPIONATE 50 MCG/ACT 16 GM NASAL SPRAY EACH NARE SCH ×2 (08:46→19:47)
[2017-07-27] MEDS: PRAVASTATIN SOD 80 MG TAB PO SCH (08:47)
[2017-07-27 10:00] LABS: BANDS 1 % (0-6); LYMPHOCYTES 6 % (9-44); MONOCYTES 7 % (0-8); MYELOCYTES 1 % (0-0); NEUTROPHIL # MANUAL DIFF 7.4 TH/MM3 (1.8-7.7); POLYS (SEG NEUTROPHILS) 85 % (16-70)
[2017-07-27 10:01] LABS: HYPERSEGMENTED POLYS 1+ (NORMAL)
--- NOTE | 2017-07-27 10:37 | HHI.PR ---
Subjective Remarks Follow-up for metastatic lung cancer with metastases to brain status post resection of the brain metastasis. Patient is currently doing well. No acute concerns. KATHLEEN drain was discontinued this morning. No fever or chills. She is tolerating diet well. Currently on room air. Objective Vitals Vital Signs Date Time Temp Pulse Resp B/P (MAP) Pulse Ox O2 Delivery O2 Flow Rate FiO2 07/27/17 08:02 98 21 07/27/17 06:00 51 07/27/17 04:00 56 07/27/17 04:00 98.2 56 31 137/64 (88) 94 07/27/17 02:00 52 07/27/17 00:00 50 07/27/17 00:00 98.1 50 14 138/65 (89) 94 07/26/17 20:00 98.4 48 18 138/65 (89) 96 07/26/17 18:00 98.4 53 21 117/65 (82) 97 Room Air 07/26/17 17:00 47 22 124/58 (80) 95 Room Air 07/26/17 16:00 98.2 52 14 128/67 (87) 98 Room Air 07/26/17 15:00 53 20 124/59 (80) 97 Room Air 07/26/17 14:00 50 20 124/60 (81) 97 Room Air 07/26/17 13:00 52 22 129/80 (96) 95 Room Air 07/26/17 12:00 96.8 53 22 120/76 (91) 96 Room Air 07/26/17 11:00 42 14 131/60 (83) 96 Room Air I/O 07/26/17 07/26/17 07/26/17 07/27/17 07/27/17 07/27/17 07:00 15:00 23:00 07:00 15:00 23:00 Intake Total 300 ml 600 ml 1289 ml 2065 ml Output Total 1020 ml 1275 ml 650 ml 5 ml Balance -720 ml -675 ml 639 ml 2060 ml Intake Oral 300 ml 600 ml 960 ml IV Total 1289 ml 1105 ml Output Urine Total 1000 ml 1275 ml 640 ml Drainage Total 20 ml 10 ml 5 ml # Voids 5 Result Diagram: 07/27/17 0435 07/27/17 0435 Imaging Last Impressions Head CT 07/25/17 0000 Signed Impressions: Service Date/Time: Tuesday, July 25, 2017 18:39 - CONCLUSION: Postoperative findings in the left occipital region. Elijah Timmons MD Chest X-Ray 07/25/17 0000 Signed Impressions: Service Date/Time: Tuesday, July 25, 2017 10:45 - CONCLUSION: 1. Right apical opacity likely reflecting primarily post treatment changes. 2. No acute abnormality. Jed Nagel MD Brain MRI 07/25/17 0000 Signed Impressions: Service Date/Time: Tuesday, July 25, 2017 12:44 - CONCLUSION: Left occipital mass lesion as above. Orlando Henry MD Objective Remarks GENERAL: Alert, oriented 3, NAD. SKIN: Warm and dry. HEAD: Normocephalic. EYES: No scleral icterus. No injection or drainage. NECK: Supple, trachea midline. No JVD or lymphadenopathy. CARDIOVASCULAR: Regular rate and rhythm without murmurs, gallops, or rubs. RESPIRATORY: Breath sounds equal bilaterally. No accessory muscle use. GASTROINTESTINAL: Abdomen soft, non-tender, nondistended. MUSCULOSKELETAL: No cyanosis, or edema. BACK: Nontender without obvious deformity. No CVA tenderness. Procedures 07/25/2017 Stereotactic, image-guided left occipital craniotomy, microsurgical resection of metastatic carcinoma A/P Problem List: (1) Lung cancer metastatic to brain ICD Code: C34.90 - Malignant neoplasm of unspecified part of unspecified bronchus or lung; C79.31 - Secondary malignant neoplasm of brain Assessment and Plan Ms. Burnett is a 56yF with history of lung cancer with mets to brain who is s/p chemo/radiation and underwent resection of brain met during this admission. Lung cancer mets to brain s/p left occipital craniotomy with resection of tumor met KATHLEEN drain removed today. Currently on [place], Decadron IV 4mg IV Q6hrs. Also on Keprra 500mg IV Q12hrs. Blood pressure is within reasonable range - 137/64 now, somewhat bradycardic but asymptomatic. Hyperlipidemia - Continue Pravastatin 80mg Qday. Can be transferred to the floor. Full code. SCDs. Dennis Vela DO Jul 27, 2017 10:37 am
[2017-07-27] MEDS ORDERED: HYDR-3583 PO (11:40)
[2017-07-27] MEDS: SUCRALFATE 1 GM TAB PO SCH (12:00)
[2017-07-27] MEDS: POTASSIUM PHOSPHATE MONOBASIC 500 MG TAB PO SCH ×2 (13:13→19:47)
[2017-07-27 14:33] LABS: HEMOGLOBIN A1C 5.9 % (4.3-6.0)
--- NOTE | 2017-07-27 19:12 | HHI.NSPN ---
Note Status Status: Progress Note Interval History Interval History Ms. Burnett is s/p stereotactic, image-guided left occipital craniotomy, microsurgical resection of metastatic carcinoma on Jul 25, 2017 for metastatic carcinoma 07/26: doing well in PACU, awaiting bed in [facility], pulse still mildly bradycardic. awake, alert, eating her lunch. 07/27. Alert and awake. No foal deficits Labs, Micro, & Vital Signs Results Date Time Temp Pulse Resp B/P (MAP) Pulse Ox O2 Delivery O2 Flow Rate FiO2 07/27/17 16:00 56 07/27/17 16:00 98.4 56 20 144/79 (100) 96 07/27/17 12:00 98.2 56 18 139/64 (89) 94 07/27/17 12:00 56 07/27/17 10:00 54 07/27/17 08:02 98 21 07/27/17 08:00 97.9 52 19 134/67 (89) 97 07/27/17 08:00 52 07/27/17 07:00 97 Room Air 07/27/17 06:00 51 07/27/17 04:00 56 07/27/17 04:00 98.2 56 31 137/64 (88) 94 07/27/17 02:00 52 07/27/17 00:00 50 07/27/17 00:00 98.1 50 14 138/65 (89) 94 07/26/17 20:00 98.4 48 18 138/65 (89) 96 Constitutional Vital Signs Date Time Temp Pulse Resp B/P (MAP) Pulse Ox O2 Delivery O2 Flow Rate FiO2 07/27/17 16:00 56 07/27/17 16:00 98.4 56 20 144/79 (100) 96 07/27/17 12:00 98.2 56 18 139/64 (89) 94 07/27/17 12:00 56 07/27/17 10:00 54 07/27/17 08:02 98 21 07/27/17 08:00 97.9 52 19 134/67 (89) 97 07/27/17 08:00 52 07/27/17 07:00 97 Room Air 07/27/17 06:00 51 07/27/17 04:00 56 07/27/17 04:00 98.2 56 31 137/64 (88) 94 07/27/17 02:00 52 07/27/17 00:00 50 07/27/17 00:00 98.1 50 14 138/65 (89) 94 07/26/17 20:00 98.4 48 18 138/65 (89) 96 Physical Exam Ms. Burnett is alert, awake and oriented to time, place and person. Speech is fluent. Head wrapped in clean and dry dressing. KATHLEEN drain with minimal drainage. Cranial nerve: pupils equal, round and reactive to light. Facial motor are normal and symmetrical. Gross hearing appears intact. Neck is soft and supple Motor: moving all four extremities Medications Current Medications Current Medications Cefazolin Sodium/ Dextrose 50 ml @ 100 mls/hr MEDICAL CODING TECHNICIAN IV Last administered on 07/25/17at 14:59; Start 07/25/17 at 10:45; Stop 07/28/17 at 10:44 Lactated Ringer's 1,000 ml @ 30 mls/hr Q24H PRN IV SEE LABEL COMMENTS; Start at 10:45; Stop 07/25/17 at 16:54; Status DC Sodium Chloride 500 ml @ 30 mls/hr [id number] PRN IV SEE LABEL COMMENTS; Start at 10:45; Stop 07/25/17 at 16:54; Status DC Metoprolol Tartrate (Lopressor) 25 mg MEDICAL CODING TECHNICIAN PRN PO SEE LABEL COMMENTS; Start 07/25/17 at 10:45; Stop 07/28/17 at 10:44 Povidone Iodine (Betadine 5% Antisepsis Kit) 1 applic MEDICAL CODING TECHNICIAN PRN EACH NARE SEE LABEL COMMENTS; Start 07/25/17 at 10:45; Stop 07/28/17 at 10:44 Chlorhexidine Gluconate (Chlorhexidine 2% Cloth) 3 pack MEDICAL CODING TECHNICIAN PRN TOPICAL SEE LABEL COMMENTS; Start 07/25/17 at 10:45; Stop 07/28/17 at 10:44 Microfibriller Collagen Hemostat (Avitene Bandage) 1 bandage STK-MED ONCE .ROUTE ; Start 07/25/17 at 12:08; Stop 07/25/17 at 12:09; Status DC Lidocaine/ Epinephrine (Xylocaine-Epi 1%-1:100,000 Inj) 30 ml STK-MED ONCE .ROUTE Last administered on 07/25/17 16:22; Start 07/25/17 at 12:08; Stop at 12:09; Status DC Thrombin (Thrombin Top Soln) 10,000 units STK-MED ONCE .ROUTE Last administered on 07/25/17 17:00; Start 07/25/17 at 12:08; Stop 07/25/17 at 12:09 ; Status DC Gelatin (Gelfoam 100 Top) 1 foam STK-MED ONCE .ROUTE Last administered on 17:00; Start 07/25/17 at 12:08; Stop 07/25/17 at 12:09; Status DC Furosemide (Lasix Inj) 40 mg STK-MED ONCE .ROUTE Last administered on 16:30; Start 07/25/17 at 12:08; Stop 07/25/17 at 12:09; Status DC Levetriacetam (Keppra Inj) 1,000 mg STK-MED ONCE IV Last administered on 16:30; Start 07/25/17 at 12:08; Stop 07/25/17 at 12:09; Status DC Bacitracin (Baciguent Oint) 15 applic STK-MED ONCE .ROUTE Last administered on 07/25/17 17:00; Start 07/25/17 at 12:09; Stop 07/25/17 at 12:10; Status DC Gentamicin Sulfate (Gentamicin Inj) 240 mg STK-MED ONCE .ROUTE Last administered on 07/25/17 16:30; Start 07/25/17 at 12:09; Stop 07/25/17 at 12:10 ; Status DC Mannitol 100 ml @ As Directed STK-MED ONCE .ROUTE Last administered on 16:30; Start 07/25/17 at 12:09; Stop 07/25/17 at 12:10; Status DC Acetaminophen 100 ml @ As Directed STK-MED ONCE IV ; Start 07/25/17 at 12:48; Stop 07/25/17 at 12:49; Status DC Artificial Tears (Lacrilube Opht Oint) 3.5 applic STK-MED ONCE .ROUTE ; Start at 12:48; Stop 07/25/17 at 12:49; Status DC Propofol 150 ml @ As Directed STK-MED ONCE .ROUTE ; Start 07/25/17 at 12:48; Stop 07/25/17 at 12:49; Status DC Potassium Chloride/Sodium Chloride 1,000 ml @ 100 mls/hr Q10H IV Last administered on 07/26/17at 21:00; Start 07/25/17 at 15:00 Cefazolin Sodium/ Dextrose 50 ml @ 100 mls/hr Q8H IV Last administered on 07/26at 14:00; Start 07/25/17 at 22:00; Stop 07/26/17 at 14:29; Status DC Levetriacetam 500 mg/Sodium Chloride 105 ml @ 400 mls/hr Q12H IV Last administered on 07/27/17at 14:57; Start 07/25/17 at 15:15 Bisacodyl (Dulcolax Supp) 10 mg DAILY PRN RECTAL CONSTIPATION; Start 07/25/17 at 15:15 Docusate Sodium (Colace) 100 mg BID PO Last administered on 07/27/17at 08:45; Start 07/25/17 at 21:00 Pantoprazole Sodium (Protonix) 40 mg DAILY PO Last administered on 07/27/17at 08 :44; Start 07/26/17 at 09:00 Pantoprazole Sodium (Protonix Inj) 40 mg DAILY IVP Last administered on at 09:00; Start 07/26/17 at 09:00 Ondansetron HCl (Zofran Inj) 4 mg Q6H PRN IV PUSH NAUSEA OR VOMITING; Start at 15:15 Calcium Gluconate (Calcium Gluconate Inj) 1 gm UNSCH PRN IV SEE LABEL COMMENTS ; Start 07/25/17 at 15:15; Status UNV Potassium Chloride 100 ml @ 50 mls/hr UNSCH PRN IV POTASSIUM LESS THAN 4; Start 07/25/17 at 15:15 Magnesium Sulfate 4 gm/Sodium Chloride 108 ml @ 108 mls/hr UNSCH PRN IV MAGNESIUM LESS THAN 2; Start 07/25/17 at 15:15 Acetaminophen/ Hydrocodone Bitart ([place] 10-325 Mg) 1 tab Q4H PRN PO PAIN SCALE 1 TO 5 Last administered on 07/27/17at 04:08; Start 07/25/17 at 15:15 Acetaminophen/ Hydrocodone Bitart ([place] 10-325 Mg) 2 tab Q4H PRN PO PAIN SCALE 6 TO 10; Start 07/25/17 at 15:15 Morphine Sulfate (Morphine Inj) 2 mg Q2H PRN IV PUSH PAIN SCALE 1 TO 6; Start 07/25/17 at 15:15 Morphine Sulfate (Morphine Inj) 4 mg Q2H PRN IV PUSH PAIN SCALE 7 TO 10; Start 07/25/17 at 15:15 Acetaminophen (Tylenol) 650 mg Q4H PRN PO TEMPERATURE > 101.5 F Last administered on 07/26/17at 23:06; Start 07/25/17 at 15:15 Cholecalciferol (Vitamin D3) 1,000 units DAILY PO Last administered on at 08:44; Start 07/26/17 at 09:00 Cyproheptadine HCl (Periactin) 4 mg BID PO Last administered on 07/27/17 08:43 ; Start 07/25/17 at 21:00 Escitalopram Oxalate (Lexapro) 10 mg DAILY PO Last administered on 07/27/17at 08 :45; Start 07/26/17 at 09:00 Fluticasone Propionate (Flonase Huseyin Spr) 1 spray BID EACH NARE ; Start 07/25/17 at 21:00 Lorazepam (Ativan) 1 mg DAILY PRN PO ANXIETY; Start 07/25/17 at 15:15 Multivitamins (Theragran) 1 tab DAILY PO Last administered on 07/27/17at 08:44; Start 07/26/17 at 09:00 Sertraline HCl (Zoloft) 50 mg DAILY PO ; Start 07/26/17 at 09:00; Status UNV Sucralfate (Carafate) 1 gm DAILY@1100 PO Last administered on 07/27/17at 12:00; Start 07/26/17 at 11:00 Valacyclovir HCl (Valtrex) 1,000 mg DAILY PO Last administered on 07/27/17at 08: 44; Start 07/26/17 at 09:00 Non-Formulary Medication 10 mg HS PO ; Start 07/25/17 at 21:00; Status UNV Non-Formulary Medication 20 mg DAILY PO ; Start 07/26/17 at 09:00; Status UNV Pravastatin Sodium (Pravachol) 80 mg DAILY PO ; Start 07/26/17 at 09:00 Calcium Gluconate 1 gm/Sodium Chloride 110 ml @ 110 mls/hr UNSCH PRN IV SEE LABEL COMMENTS; Start 07/25/17 at 15:45 Nicardipine HCl (Cardene Inj) 25 mg STK-MED ONCE .ROUTE ; Start 07/25/17 at 17: 25; Stop 07/25/17 at 17:26; Status DC Meperidine HCl (*DEMEROL INJ PERIprocedural ONLY) 25 mg STK-MED ONCE .ROUTE Last administered on 07/25/17at 18:08; Start 07/25/17 at 18:08; Stop 07/25/17 at 18:09; Status DC Fentanyl Citrate (fentaNYL INJ) 300 mcg STK-MED ONCE .ROUTE ; Start 07/25/17 at 18:22; Stop 07/25/17 at 18:23; Status DC Midazolam HCl (Versed Inj) 2 mg STK-MED ONCE .ROUTE ; Start 07/25/17 at 18:23; Stop 07/25/17 at 18:24; Status DC Nicardipine HCl (Cardene Inj) 25 mg STK-MED ONCE .ROUTE Last administered on at 18:56; Start 07/25/17 at 18:56; Stop 07/25/17 at 18:57; Status DC Morphine Sulfate (*morphine INJ PERIprocedure ONLY) 8 mg STK-MED ONCE .ROUTE Last administered on 07/25/17at 19:07; Start 07/25/17 at 19:07; Stop 07/25/17 at 19:08; Status DC Miscellaneous Information ALL NURSING DEPARTME... UNSCH PRN .XX SEE LABEL COMMENTS; Start 07/25/17 at 19:30; Stop 07/26/17 at 19:29; Status DC Gadodiamide (Omniscan Pf Inj) 13 ml STK-MED ONCE IVCONTRAST Last administered on 07/25/17at 12:30; Start 07/25/17 at 12:30; Stop 07/25/17 at 20:00; Status DC Magnesium Sulfate/ Dextrose 100 ml @ 100 mls/hr Q1H IV Last administered on at 23:37; Start 07/25/17 at 21:00; Stop 07/25/17 at 22:59; Status DC Morphine Sulfate (*morphine INJ PERIprocedure ONLY) 4 mg STK-MED ONCE .ROUTE Last administered on 07/25/17at 20:57; Start 07/25/17 at 20:57; Stop 07/25/17 at 20:58; Status DC Magnesium Sulfate/ Dextrose 100 ml @ 100 mls/hr Q1H IV ; Start 07/25/17 at 21: 00; Stop 07/25/17 at 22:59; Status Cancel Dexamethasone Sodium Phosphate (Decadron Inj) 4 mg STK-MED ONCE .ROUTE ; Start 07/26/17 at 08:47; Stop 07/26/17 at 08:48; Status DC Dexamethasone Sodium Phosphate (Decadron Inj) 4 mg Q6H IV Last administered on 07/27/17at 14:57; Start 07/26/17 at 09:00 Lactated Ringer's 3,000 ml @ As Directed STK-MED ONCE IV ; Start 07/26/17 at 12 :00; Stop 07/26/17 at 13:32; Status DC Sodium Chloride 250 ml @ As Directed STK-MED ONCE IV ; Start 07/26/17 at 12:00 ; Stop 07/26/17 at 13:32; Status DC Sodium Chloride 500 ml @ As Directed STK-MED ONCE IV ; Start 07/26/17 at 12:00 ; Stop 07/26/17 at 13:32; Status DC Lidocaine HCl (Xylocaine-Mpf 1% Inj) 5 ml STK-MED ONCE OTHER ; Start 07/26/17 at 12:00; Stop 07/26/17 at 13:32; Status DC Rocuronium [place] (Zemuron Inj) 50 mg STK-MED ONCE IV PUSH ; Start 07/26/17 at 12:00; Stop 07/26/17 at 13:32; Status DC Neostigmine Methylsulfate (Prostigmine Inj) 5 mg STK-MED ONCE IV PUSH ; Start at 12:00; Stop 07/26/17 at 13:32; Status DC Glycopyrrolate (Robinul Inj) 1 mg STK-MED ONCE IV PUSH ; Start 07/26/17 at 12:00 ; Stop 07/26/17 at 13:32; Status DC Hydralazine HCl (Apresoline Inj) 20 mg STK-MED ONCE IV ; Start 07/26/17 at 12:00 ; Stop 07/26/17 at 13:32; Status DC Dexamethasone Sodium Phosphate (Decadron Inj) 4 mg STK-MED ONCE IV ; Start 07/26 at 12:00; Stop 07/26/17 at 13:32; Status DC Propofol (Diprivan 200 Mg/20 ml Inj) 400 mg STK-MED ONCE IV ; Start 07/26/17 at 12:00; Stop 07/26/17 at 13:32; Status DC Labetalol HCl (Trandate Inj) 100 mg STK-MED ONCE IV ; Start 07/26/17 at 12:00; Stop 07/26/17 at 13:32; Status DC Potassium Phosphate (K-Phos) 500 mg Q12HR PO Last administered on 07/27/17at 13: 13; Start 07/27/17 at 12:00; Stop 07/27/17 at 21:01 Attending Statement Will discontinue KATHLEEN drain cont neuro checks, awaiting bed in [facility], PT, clear to start mobilizing OOB to chair cont seizure prophylaxis cont SCDs and VENTURA for dvt prophylaxis cont Protonix for stress ulcer prophylaxis Discharge planning Justice Maxwell MD Jul 27, 2017 19:12
[2017-07-28 00:24] VITALS: BP 138/63; PULSE 52; RESP 18; TEMP 97.9; O2SAT 96
[2017-07-28] MEDS: DEXAMETHASONE SOD PHOS 4 MG/ML VIAL IV SCH ×2 (03:21→08:22)
[2017-07-28] MEDS: levETIRAcetam INJ 500 MG in SODIUM CHLORIDE 0.9% INJ 100 ML IV SCH (03:21)
[2017-07-28 05:02] VITALS: BP 128/62; PULSE 52; RESP 18; TEMP 97.7; O2SAT 96
[2017-07-28 08:00] VITALS: PULSE 86
[2017-07-28 08:17] VITALS: BP 139/65; PULSE 57; RESP 18; TEMP 98.2; O2SAT 95
[2017-07-28] MEDS: PRAVASTATIN SOD 80 MG TAB PO SCH (08:23)
[2017-07-28] MEDS: CHOLECALCIFEROL (VIT D3) 1000 UNIT TAB PO SCH (08:23)
[2017-07-28] MEDS: CYPROHEPTADINE HCL 4 MG TAB PO SCH (08:23)
[2017-07-28] MEDS: PANTOPRAZOLE SOD 40 MG DELAYED RELEASE TAB PO SCH (08:23)
[2017-07-28] MEDS: MULTIVITAMIN TAB PO SCH (08:24)
[2017-07-28] MEDS: ESCITALOPRAM OXALATE 10 MG TAB PO SCH (08:24)
[2017-07-28] MEDS: valACYclovir HCL 500 MG TAB PO SCH (08:24)
[2017-07-28] MEDS: DOCUSATE SODIUM 100 MG CAP PO SCH (08:24)
[2017-07-28] MEDS: PANTOPRAZOLE SODIUM 40 MG VIAL IVP SCH (08:25)
[2017-07-28] MEDS: ACETAMINOPHEN/HYDROcodone 325 MG/10 MG TAB PO PRN (08:26)
[2017-07-28] MEDS: FLUTICASONE PROPIONATE 50 MCG/ACT 16 GM NASAL SPRAY EACH NARE SCH (08:27)
[2017-07-28 10:09] LABS: ALBUMIN 3.5 GM/DL (3.4-5.0); ALKALINE PHOSPHATASE 96 U/L (45-117); ALT (GPT) 53 U/L (10-53); AST (GOT) 34 U/L (15-37); BLOOD UREA NITROGEN 15 MG/DL (7-18); CALCIUM 8.9 MG/DL (8.5-10.1); CHLORIDE 105 MEQ/L (98-107); CREATININE 0.84 MG/DL (0.50-1.00); GLOMERULAR FILTRATION RATE 71 ML/MIN (>89); GLUCOSE,RANDOM 104 MG/DL (74-106); SODIUM (NA) 139 MEQ/L (136-145); TOTAL BILIRUBIN ADULT 0.4 MG/DL (0.2-1.0); TOTAL PROTEIN 6.5 GM/DL (6.4-8.2)
[2017-07-28] MEDS: SUCRALFATE 1 GM TAB PO SCH (11:41)
--- NOTE | 2017-07-30 09:40 | HHI.DS ---
Discharge Summary Admission Date Jul 25, 2017 at 10:07 Discharge Date: Jul 28, 2017 Admitting Diagnosis s/p craniotomy for resection of brain mass (1) Lung cancer metastatic to brain ICD Code: C34.90 - Malignant neoplasm of unspecified part of unspecified bronchus or lung; C79.31 - Secondary malignant neoplasm of brain Brief History Ms Burnett is a 56-year-old female with history of lung carcinoma who presented with a left occipital mass, causing mass effect on the underlying brain and midline shift. Surgical resection was indicated. CBC/BMP: 07/27/17 0435 07/28/17 0906 Significant Findings Laboratory Tests Test 07/28/17 09:06 Estimat Glomerular Filtration Rate 71 ML/MIN (>89) Imaging Last Impressions Head CT 07/25/17 0000 Signed Impressions: Service Date/Time: Tuesday, July 25, 2017 18:39 - CONCLUSION: Postoperative findings in the left occipital region. Elijah Timmons MD Chest X-Ray 07/25/17 0000 Signed Impressions: Service Date/Time: Tuesday, July 25, 2017 10:45 - CONCLUSION: 1. Right apical opacity likely reflecting primarily post treatment changes. 2. No acute abnormality. Jed Nagel MD Brain MRI 07/25/17 0000 Signed Impressions: Service Date/Time: Tuesday, July 25, 2017 12:44 - CONCLUSION: Left occipital mass lesion as above. Orlando Henry MD Hospital Course Ms. 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 She was discharged home on Sunday per Dr. Maxwell in stable conditions. Pt Condition on Discharge: Stable Discharge Disposition: Discharge Home Discharge Instructions DIET: Follow Instructions for: Heart Healthy Diet ACTIVITIES You can perform: Weight Bearing As Yannick ADDITIONAL Activity Instructio: Avoid strenuous activities, head trauma, falls. New Medications: Hydrocodone/Acetaminophen (Hydrocodone-Acetamin 10-325 mg) 10 Mg-325 Mg Tablet 1 TAB PO Q4H PRN for PAIN SCALE 1 TO 10, #30 TAB-CAP 0 Refills Continued Medications: Cholecalciferol (D3) 1,000 Unit Tab 1000 UNIT PO DAILY Cyproheptadine Hcl (Cyproheptadine Hcl) 4 Mg Tab 4 MG PO BID Dexamethasone (Dexamethasone) 4 Mg Tab 4 MG PO DIRECTED, TAB 0 Refills Escitalopram (Escitalopram) 10 Mg Tab 10 MG PO DAILY, #30 TAB 0 Refills Estrogens, Conjugated Vaginal (Premarin Vaginal) 0.625 Mg/Gm Cream 1 GM VAGINAL qweek for Estrogen Supplements, #1 TUBE 0 Refills Fluticasone Nasal [place] (Fluticasone Nasal [place]) 50 Mcg/Act Naspr 50 MCG EACH NARE BID for Allergy Management, #1 BOTTLE 0 Refills 50 mcg/spray Hydrocodone-Acetaminophen (Hydrocodone-Acetaminophen) 5-325 mg Tab 1 TAB PO Q4H PRN for PAIN, TAB 0 Refills Lorazepam (Lorazepam) 1 Mg Tab 1 MG PO DAILY PRN for ANXIETY, TAB 0 Refills Lovastatin (Lovastatin) 10 Mg Tab 10 MG PO HS Multiple Vitamin (Multivitamin) 1 Tab Tab 1 TAB PO DAILY Omeprazole 20 mg (Omeprazole 20 mg) 20 Mg Tab 20 MG PO DAILY Pemetrexed Inj ([place] Inj) 100 Mg Inj 100 MG IV, INJ Pitavastatin (Livalo) 4 Mg Tab 4 MG PO DAILY for Cholesterol Management, #30 TAB 0 Refills Sertraline Hcl (Zoloft) 50 Mg Tab 50 MG PO DAILY, 0 Refills Sucralfate (Sucralfate) 1 Gm Tab 1 GM PO DAILY Valacyclovir Hcl (Valtrex) 1 Gm Tab 1 GM PO DAILY Nichelle Mann Jul 30, 2017 09:40
== END 2017-07-28 13:34 | disposition home or self-care (01) | DRG 26 ==
LOC: HSDI 10:07 → HPAC 22:49 → N03B 07-26 19:00 → N05A 07-27 16:58
PROVIDERS: ADMIT Neurological Surgery; ATTEND Neurological Surgery
PROC: 00B00ZX Excision of Brain, Open Approach, Diagnostic (ICD-10-PCS; principal; 2017-07-25 15:08)
DX: C79.31 Secondary malignant neoplasm of brain (principal); C34.90 Malignant neoplasm of unspecified part of unspecified bronchus or lung; Z92.3 Personal history of irradiation; Z92.21 Personal history of antineoplastic chemotherapy
CPT/HCPCS: 70450; 70552; 71045; 80048; 80053; 81001; 83036; 83735; 84100; 84155; 84439; 84443; 85007; 85025; 85027; 85610; 85730; 86850; 86900; 86901; 86920; 87641; 88305; 88307; 88331; 93005; 94150; A9579; C1713; C9113; J0131; J0360; J0690; J1100; J1580; J1940; J1953; J2150; J2175; J2250; J2270; J2710; J3010; J3475; J3480; J7040; J7050; J7120